=== PATIENT | male | born 1970 | race Asian ===

== ENCOUNTER 2023-08-12 08:21 | Day surgery (SDC) | payer OTHER, SELFPAY ==
[2023-08-08 08:31] VITALS: BMI 21.7
[2023-08-08 08:57] LABS: % Basophils 0.5 % (0-2); % Eosinophils 3.1 % (0-6); % Immature Granulocytes 0.4 % (0-0.5); % Lymphocytes 29.7 % (20.5-51.1); % Monocytes 7.7 % (1.7-9.3); % Neutrophils 58.6 % (42.2-75.2); Absolute Eosinophils 0.2 10^3/uL (0-0.7); Absolute Lymphocytes 1.6 10^3/uL (1.2-3.4); Absolute Monocytes 0.4 10^3/uL (0.1-0.6); Absolute Neutrophils 3.2 10^3/uL (1.4-6.5); Hematocrit 40.3 % (39.0-52.0); Hemoglobin 14.4 g/dL (13.0-18.0); Mean Corp Hgb Conc. 35.7 g/dL (33.0-37.0); Mean Corpuscular Hgb 29.3 pg (27.0-31.0); Mean Corpuscular Volume 82.1 fL (80.0-94.0); Mean Platelet Volume 11.2 fL (7.4-10.4); Nucleated Red Blood Cells % 0 % (-); Platelet Count 236 10^3/uL (130-400); Red Blood Cell Count 4.91 10^6/uL (4.70-6.10); Red Cell Dist. Width 11.7 % (11.5-14.5); White Blood Cell Count 5.5 10^3/uL (4.8-10.8)
--- NOTE | 2023-08-08 11:20 | HPS.HSE ---
Family Physician
-
Family Physician: Genoveva Hudson
Chief Complaint
-
Abnormal stress test. Coronary artery disease. Hypertension.
History of Present Illness
The patient is a 53 year old male presenting today with a history of coronary artery disease and hypertension. His blood pressure is overall well controlled on current pharmacological therapy. He was diagnosed with coronary artery disease by
an elevated calcium score in April 2022. A follow-up nuclear stress test in April 2023 demonstrated abnormalities suggestive of a small area of inferior ischemia in addition to a small distal anterior defect with perfusion, also suggestive of
ischemia. Today he does report a history of intermittent, dull, substernal chest pain with associated dizziness and fatigue. He notes that his chest pain can occur at any point, with or without exertion, and that it usually resolves on its own
within minutes. He denies radiation of his pain. Given his abnormal stress test and his more recent symptoms suggestive of obstructive coronary artery disease, it is recommended he proceed with a left cardiac catheterization. He denies any current
complaints today such as chest pain, shortness of breath, nausea, vomiting, diarrhea, lightheadedness, cough, sore throat, or fever.
Medical History
Past Medical History
Past Medical History: Reports Other
Additional Past Medical History:
1. Abnormal stress test 04/2023.
2. Coronary artery disease per elevated calcium score 04/2022; on Aspirin.
3. Hypertension.
4. Hyperlipidemia, statin intolerant.
5. Palpitations.
6. Fatty liver disease.
7. Recent small, superficial left hand burn without drainage.
8. Remote history of tobacco abuse.
Past Surgical History: Reports None
Social History
Tobacco: Former Smoker (Former 'occasional' cigarette smoker who quit tobacco altogether 20+ years ago. )
Alcohol: Occasional
Personal:
Living: Other (He lives with his and daughter in a 2 story home. )
Family History
Family History: Not pertinent
Allergies / Home Medications
Allergy/Medication List:
Home medications:
1. Aspirin 81 mg p.o. at bedtime.
2. Calcium 500 mg p.o. daily.
3. Zetia 10 mg p.o. at bedtime.
4. Isosorbide mononitrate 20 mg p.o. daily.
5. Metoprolol Succinate 25 mg p.o. at bedtime.
6. Multivitamin 1 tablet p.o. daily.
7. [place] 3 1000 mg p.o. daily.
Allergies: Sulfa.
Review of Systems
-
A 12 point ROS was completed and negative except as noted: Yes
Physical Exam
Vital Signs
Blood pressure 106/70. Heart rate 60. Respirations 18. Pulse ox 97% on room air.
Height 5 feet, 8 inches. Weight 64.6. kg. BMI 21.7.
Physical Exam
General: Well Developed, Well Nourished and No Apparent Distress
HEENT: NormoCephalic, Moist mucous membranes, Atraumatic and PERRLA
Respiratory: Clear
Cardiac: Regular Rhythm
GI: Soft, Non Tender and Non Distended
Musculoskeletal: Normal Gait & Station
Skin: Warm, Dry and Other (Small, superficial left hand ulcer without drainage. )
Neuro: AO x 3 and Nonfocal/grossly intact
Laboratory Results
-
08/08/23 08:42
EKG 08/08/2023: Sinus bradycardia. ST elevation, consider early repolarization, pericarditis, or injury.
Nuclear stress test 04/2023, calcium score 04/2022, and echocardiogram 04/2021 scanned into [employer].
Impression/Plan
-
IMPRESSION/PLAN:
1. Abnormal stress test, coronary artery disease, and hypertension: The patient is in need of a left cardiac catheterization with Dr. Jose Lau on 08/12/2023. The benefits and risks of the procedure have been explained to the patient. The
patient understands these risks and wishes to proceed. He will continue his medications, including his baby Aspirin, up to and including the day of his procedure.
[2023-08-12] VITALS (12 sets, daily range): BP systolic 113–143; BP diastolic 72–88
[2023-08-12] MEDS: LOW STRENGTH ASPIRIN 81 MG PO (09:10)
[2023-08-12] MEDS: NSS 194 ML IV (09:12)
[2023-08-12 09:13] LABS: ALT (SGPT) 43 U/L (0-50); AST (SGOT) 35 U/L (17-59); Albumin 4.5 g/dl (3.5-5.0); Alkaline Phosphatase 56 U/L (38-126); Blood Urea Nitrogen 16 mg/dl (9-20); Calcium 9.6 mg/dl (8.4-10.2); Carbon Dioxide 28 mmol/L (22-30); Chloride 103 mmol/L (98-107); Estimated Creatinine Clearance 100 ml/min; Glucose 109 mg/dl (70-99); Sodium 141 mmol/L (135-145); Total Bilirubin 0.5 mg/dl (0.2-1.3); Total Protein 7.5 g/dl (6.3-8.2); eGFR > 60.00
[2023-08-12 10:48] LABS: ACT-LR - POC 300 Seconds (116-155)
--- NOTE | 2023-08-12 11:28 | ITS.CL.CATH ---
[employer] - Catheterization
Cardiac Catheterization
Procedure Report:
CARDIAC CATHETERIZATION REPORT
Date of Procedure: 08/12/2023
Referring: Mukul Warren DO
Indication: Angina with abnormal stress test and abnormal coronary CTA
HEMODYNAMIC DATA
AO: 150/89
LV: 150/14
LEFT VENTRICULOGRAPHY: Normal left ventricular wall motion with EF 62%
CORONARY ANGIOGRAPHY
Dominance: Right
Left Main: Normal
LAD: There is long segment disease from the proximal LAD extending through the mid LAD with two focal areas of greater than 70% stenosis. The large first diagonal branch has diffuse mild to moderate ostial/proximal stenosis and focal 70% mid
stenosis
Circumflex: The circumflex has trivial luminal irregularities. This vessel gives rise to small OM1, OM 2 and OM 3 branches. There is a medium sized OM 4 and a large OM 5. There is evidence of distal circumflex occlusion although this cannot be
angiographically located. There is collateralization of two small left posterolateral branches from the right AV groove branch as well as faint collateralization from a diagonal branch of the LAD and the distal LAD.
RCA: The RCA is dominant. There is no significant disease in the RCA proper. The RPDA has tandem 60% mid and 80% distal stenoses. As above, there is some right AV groove branch collateralization of two small distal left posterolateral branches
Angioplasty: Options were discussed at the conclusion the diagnostic study including LAD and diagonal PCI or consultation with cardiac surgery to discuss CABG. I did not feel that the PDA was graftable and clearly the distal left posterolateral
branches were not graftable; therefore, there seemed no clear advantage for surgery in terms of the completeness of revascularization and there was certainly no survival advantage of CABG in this patient with normal left ventricular function and no
diabetes mellitus. Following discussion, the patient opted for PCI.
A 6 [place] EBU 3.75 guide catheter was advanced the left coronary ostium. Heparin was used for anticoagulation and Plavix 600 mg was administered at the procedure conclusion. A BMW wire was advanced into the large first diagonal branch. A second
BMW wire was then advanced into the distal LAD. The diagonal lesion was directly stented with a 2.25 x 12 Xience JACQUES deployed at 14 mary. We then placed a 3.0 x 38 Xience JACQUES to cover the distalmost aspect of the long proximal and mid LAD lesion.
Stent deployment was accomplished at 14 mary. We then placed a proximally overlapping 3.0 x 18 Xience JACQUES with deployment pressure of 14 mary. The entire stented segment was then postdilated with a 3.0 NC trek to 17 mary. The final angiographic
result was outstanding. There remained normal flow in the stented and now jailed first diagonal branch.
Closure Device: None-the procedure was performed via the right radial artery. The Buster's test was normal prior to the procedure.
Radiation (mGy): 321
DAP (cm2.Gy): 18.9
Fluoroscopy time: 7.6 minutes
CONCLUSIONS
1: Normal left ventricular function with EF 62%
2: Multivessel CAD as described
3. Successful stenting of long segment LAD disease using overlapping from proximal to distal 3.0 x 18 and 3.0 x 38 Xience drug-eluting stents
4. Successful stenting of 70% mid D1 stenosis using 2.25 x 12 Xience JACQUES
5. Recommend dual antiplatelet therapy for minimum 12 months and consider longer given the length of vessel requiring stenting and young age of the patient
6. Treat residual CAD medically
7. He will need to accept statin therapy assuming he has a desire to lower his risk of subsequent cardiac events. Goal LDL less than 70 for sure and ideally less than 55
Copy to: Mukul Warren DO, Genoveva Hudson PA-C
Jose Lau MD, [facility], [facility]
[2023-08-12 12:23] LABS: ACT-LR - POC > 397 Seconds (116-155)
--- NOTE | 2023-08-12 15:18 | W.PN.UPDATE ---
Update Note
Progress Note Update
Pt seen post LAD PCI x2 JACQUES and Diagonal PCI x1 JACQUES. Radial cath site without ht/bleeding, non tender. OOB to chair. Post EKG SB 50s with deep lateral TWI- noted smaller TWI on prior EKG from February. Repeat EKG a few hours later with improved
lateral changes, closer to baseline. Pt is pain free, denies cp/palps/dyspnea. Pt understands importance of uninterrupted DAPT w/asa, plavix. New start atorvastatin 40mg/daily and SL Nitro rx also sent. Cardiac rehab consulted. Followup w/.
[facility] arranged. Home later today if cath site/tele remain stable.
Above discussed w/Dr. Lau.
== END 2023-08-12 17:00 | disposition home or self-care (01) ==
LOC: CATH 08:21
PROVIDERS: ATTENDING PHYSICIAN Internal Medicine Cardiovascular Disease; FAMILY PHYSICIAN Physician Assistant; OTHER PHYSICIAN Internal Medicine Cardiovascular Disease
DX: I25.119 Atherosclerotic heart disease of native coronary artery with unspecified angina pectoris (principal); I10 Essential (primary) hypertension; E78.5 Hyperlipidemia, unspecified; K76.0 Fatty (change of) liver, not elsewhere classified; R00.2 Palpitations; Z87.891 Personal history of nicotine dependence; Z79.82 Long term (current) use of aspirin; Z79.02 Long term (current) use of antithrombotics/antiplatelets
CPT/HCPCS: 36415; 80053; 85025; 85347; 93005; 93458; C1725; C1769; C1874; C1894; C9600; C9601; Q9967

== ENCOUNTER 2023-10-01 08:30 | Outpatient (RCR) | payer OTHER, SELFPAY | END 2023-10-01 23:59 | disposition home or self-care (01) | LOC: CRHB 08:30 | PROVIDERS: ATTENDING PHYSICIAN Internal Medicine Cardiovascular Disease; FAMILY PHYSICIAN Physician Assistant | DX: I25.10 Atherosclerotic heart disease of native coronary artery without angina pectoris (principal); Z95.5 Presence of coronary angioplasty implant and graft | CPT/HCPCS: G0422; G0423 ==

== ENCOUNTER 2023-10-31 09:49 | Outpatient (RCR) | payer OTHER, SELFPAY | END 2023-10-31 23:59 | disposition home or self-care (01) | LOC: CRHB 09:49 | PROVIDERS: ATTENDING PHYSICIAN Internal Medicine Cardiovascular Disease; FAMILY PHYSICIAN Physician Assistant | DX: I25.10 Atherosclerotic heart disease of native coronary artery without angina pectoris (principal); Z95.5 Presence of coronary angioplasty implant and graft | CPT/HCPCS: G0422; G0423 ==

== ENCOUNTER 2023-11-26 08:52 | Outpatient (RCR) | payer OTHER, SELFPAY | END 2023-11-26 23:59 | disposition home or self-care (01) | LOC: CRHB 08:52 | PROVIDERS: ATTENDING PHYSICIAN Internal Medicine Cardiovascular Disease; FAMILY PHYSICIAN Physician Assistant | DX: I25.10 Atherosclerotic heart disease of native coronary artery without angina pectoris (principal); Z95.5 Presence of coronary angioplasty implant and graft | CPT/HCPCS: 93005; G0422; G0423 ==

== ENCOUNTER 2023-12-31 09:02 | Outpatient (RCR) | payer OTHER, SELFPAY | END 2023-12-31 23:59 | disposition home or self-care (01) | LOC: CRHB 09:02 | PROVIDERS: ATTENDING PHYSICIAN Internal Medicine Cardiovascular Disease; FAMILY PHYSICIAN Physician Assistant | DX: I25.10 Atherosclerotic heart disease of native coronary artery without angina pectoris (principal); Z95.5 Presence of coronary angioplasty implant and graft | CPT/HCPCS: G0422; G0423 ==

== ENCOUNTER 2024-01-21 10:51 | Outpatient (RCR) | payer OTHER, SELFPAY | END 2024-01-21 23:59 | disposition home or self-care (01) | LOC: CRHB 10:51 | PROVIDERS: ATTENDING PHYSICIAN Internal Medicine Cardiovascular Disease | DX: I25.10 Atherosclerotic heart disease of native coronary artery without angina pectoris (principal); Z95.5 Presence of coronary angioplasty implant and graft | CPT/HCPCS: G0422; G0423 ==